=== PATIENT | female | born 1960 | race Native Hawaiian/Other Pacific Islander ===

== ENCOUNTER 2020-05-01 09:00 | Observation (INO) | payer OTHER ==
[~2020-05-01] VITALS: Ht 149.9 cm; Wt 83.9 kg
--- NOTE | ~2020-05-01 | O ---
[facility] [place] [address] OPERATIVE REPORT Name: LISBETH MCCLELLAND Room #: 442-P [facility] Ching Daly#: [id number] Admission: 06/19/20 Attend Phys: Bebeto Schultz MD Discharge: Date of : 58 Report #: [id number] THIS REPORT FOR: cc: JUAN RINALDI Physician not on staff Bebeto Schultz MD ~ DATE OF SERVICE: 06/19/2020 PREOPERATIVE DIAGNOSIS: Right knee osteoarthritis. POSTOPERATIVE DIAGNOSIS: Right knee osteoarthritis. PROCEDURE: Right total knee arthroplasty using Navio robotic support assistant. SURGEON: Bebeto Schultz MD. BENDING ROLL HAND: Karime Ledesma PA-C. INDICATIONS FOR BENDING ROLL HAND: Throughout the case, extensive retraction and manipulation of the knee was required. This was afforded to me by my support assistant. ANESTHESIA: LMA with an adductor canal block. IMPLANTS: Holland and Nephew size 3 Journey II BCS Oxinium femur, a size 2 tibia, size 11 polyethylene and size 29 patella. TOURNIQUET TIME: 50 minutes. ESTIMATED BLOOD LOSS: 25 mL. COMPLICATIONS: None. SPECIMENS: None. CONDITION UPON LEAVING THE OPERATING ROOM: Stable. INDICATIONS FOR PROCEDURE: The patient is a 60-year-old female with right knee osteoarthritis. She had failed conservative measures for this and after discussion with her, she elected for right total knee arthroplasty. DESCRIPTION OF PROCEDURE: Risks, benefits, alternatives, complications were discussed in detail with the patient including but not limited to risk of anesthesia, risk of damage to nerves, arteries, blood vessels, risk for infection, bleeding, risk for continued knee pain, need for reoperation. Informed consent was obtained from the patient. Right knee was appropriately marked in the preoperative holding area. IV Ancef was given for preoperative [address] [address] OPERATIVE REPORT Name: LISBETH MCCLELLAND Room #: 442-P [facility] Ching Daly#: [id number] Admission: 06/19/20 Attend Phys: Bebeto Schultz MD Discharge: Date of : 58 Report #: [id number] antibiotics. She was brought to the operating room and placed in supine position on operating room table. LMA anesthesia was induced without complication. Tourniquet was placed on the right thigh. Right lower extremity was prepped and draped in normal sterile fashion. Timeout was performed properly identifying the patient and procedure as well as the instrumentation and implants. All in the operating room were in agreement. Right lower extremity was exsanguinated, tourniquet was inflated. Tourniquet time was 50 minutes. Standard midline approach to the knee was made with 10 blade through the skin. Dissection was taken down sharply to the fascia and deep flaps were developed medially and laterally. Fresh 10 blade was used to make a medial parapatellar arthrotomy and the knee was inspected. There was severe tricompartmental osteoarthritis. ACL and PCL were removed sharply. Reference pins were placed in the femur and the tibia. The knee was then digitally mapped using the [employer] robotic system. Intraoperative plan was made and we sized to size 3 femur with a size 2 tibia and a size 29 and a size 11 spacer. After acceptance of the intraoperative plan, the distal femoral cut was made with a Navio bur. Distal femoral cutting block was pinned in place and chamfer cuts were made. Attention was turned to the tibia. Remainder of the meniscus was removed with Bovie cautery. Tibial resection guide was pinned in place using Navio for placement and tibial resection was made. After this, flexion and extension gaps were then checked and found to have good balance in flexion and extension both medially and laterally. Tibia was sized, found to be a size 2. A size 2 tibial trial was placed, pinned and punched. Size 3 femoral trial was placed and the box cut was made. This was then trialed with a size 10 and then a size 11 polyethylene and size 11 demonstrated 1-2 millimeter of laxity medially and laterally throughout range of motion of the knee. A 9 mm was resected from the posterior surface of the patella and a size 29 patellar trial button was placed. Knee was taken through range of motion, found to be stable, found to have good patellar tracking. Trial components were removed. Bony ends were thoroughly irrigated with normal saline. A final size 2 tibia, size 3 Journey II BCS Oxinium femur and a size 29 patella were cemented in place using standard cementation techniques. While the cement cured, a periarticular injection consisting of morphine, ropivacaine, epinephrine, Toradol was placed around the knee joint capsule. After the cement cured, the tourniquet was deflated. Hemostasis was obtained with Bovie cautery. Final size 11 polyethylene was placed. A gram of vancomycin was placed deep in the joint. Fascia was closed with 0 Vicryl, skin was closed with 2-0 Vicryl, skin staple and a PAULA dressing was applied. The patient tolerated this procedure well and went to recovery room under care of anesthesia postoperatively. By: 1245 1308 Bebeto Schultz MD /radha
[2020-06-12] MEDS ORDERED: PROTONIX40 M4 PO (14:57)
[2020-06-12] MEDS ORDERED: GLUCOPHAGE500 MG PO (14:57)
[2020-06-12] MEDS ORDERED: LISINOPRIL5 MG PO (14:57)
[2020-06-12] MEDS ORDERED: LIPITOR20 MG PO (14:57)
[2020-06-12] MEDS ORDERED: VITAMIN B-125000 MC2 PO (14:58)
[2020-06-12] MEDS ORDERED: LEVO-T50 MCG PO (14:58)
[2020-06-12] MEDS ORDERED: ASA81BEC PO (14:59)
[2020-06-12] MEDS ORDERED: CITRACAL-VIT D1 EACH PO (14:59)
[2020-06-12] MEDS ORDERED: MAGNESIUM250 M1 PO (15:00)
[2020-06-12] MEDS ORDERED: OMEGA-3 + VITA1 EACH PO (15:01)
[2020-06-14 12:52] LABS: URINE BILIRUBIN NEGATIVE (Negative); URINE BLOOD NEGATIVE (Negative); URINE CLARITY CLEAR; URINE COLOR YELLOW; URINE GLUCOSE-RANDOM* NEGATIVE (Negative); URINE KETONES NEGATIVE (Negative); URINE LEUKOCYTES-REFLEX NEGATIVE (Negative); URINE NITRITE-REFLEX NEGATIVE (Negative); URINE PROTEIN (DIPSTICK) NEGATIVE (Negative); URINE SPECIFIC GRAVITY 1.025 (1.005-1.035); URINE UROBILINOGEN 0.2 E.U./dl (0.2-1.0)
[2020-06-14 12:58] LABS: HEMATOCRIT 39.4 % (37.0-47.0); MCH 28.2 pg (26.0-34.0); MCV 85.6 fL (80.0-100.0); RBC 4.6 mil/uL (4.20-5.00); RDW 14.4 % (10.5-14.5); WBC 6.9 thou/uL (4.0-11.0)
[2020-06-14 13:14] LABS: CALCIUM 9.3 mg/dL (8.5-10.1); CREATININE 0.6 mg/dL (0.6-1.0); POTASSIUM 4.1 mmol/L (3.5-5.1)
[2020-06-14 13:21] LABS: PROTIME 10.2 Seconds (9.3-11.4)
--- NOTE | 2020-06-14 13:47 | EKG ---
[facility] [place] [address] ELECTROCARDIOGRAM REPORT Name: LISBETH MCCLELLAND Room #: [facility] IN M.R.#: [id number] Admission: Attend Phys: Bebeto Schultz MD Discharge: Date of : 58 Report #: [id number] THIS REPORT FOR: cc: JUAN RINALDI Physician not on staff Yoan Espinosa MD [facility] ~ THIS REPORT FOR: //name// [facility] Test Date: 2020-06-14 Test Time: 12:47:37 Pat Name: LISBETH MCCLELLAND Department: Room: Gender: F Forestry Farm Laborer: MADELINE : 1960 Requested By: Bebeto Schultz Order Number: [id number] MD: Yoan Espinosa Measurements Intervals [place] Rate: 55 P: 23 PA: 169 QRS: 19 QRSD: 89 T: 31 QT: 428 QTc: 410 Interpretive Statements Sinus rhythm No previous ECG available for comparison Electronically Signed On 06-14-2020 13:47:08 CALENDER SUPERVISOR by Yoan Espinosa [email or web address] <ELECTRONICALLY SIGNED> By: Yoan Espinosa MD, FACC 06/14/20 1347 1247 1247 Yoan Espinosa MD, FACC /EPI
[2020-06-15 01:07] LABS: GLYCOHEMOGLOBIN (HGB A1C) 6.1 % (4.8-5.6)
[2020-06-19 10:17] VITALS: BP 122/62
[2020-06-19 14:30] VITALS: BP 138/80
[2020-06-19 15:00] VITALS: BP 132/72
[2020-06-19 15:30] VITALS: BP 117/70
[2020-06-19 20:43] VITALS: BP 112/69
[2020-06-19 22:41] VITALS: BP 112/69
[2020-06-20 01:05] VITALS: BP 103/48
[2020-06-20 05:36] LABS: HEMATOCRIT 30.6 % (37.0-47.0); HEMOGLOBIN 10.1 gm/dL (12.0-15.0); MCH 28.1 pg (26.0-34.0); MCHC 32.9 g/dL (28.0-37.0); MCV 85.4 fL (80.0-100.0); RBC 3.58 mil/uL (4.20-5.00); RDW 14.5 % (10.5-14.5); WBC 10.8 thou/uL (4.0-11.0)
[2020-06-20 08:21] VITALS: BP 107/67
[2020-06-20 10:27] VITALS: BP 107/67
== END 2020-06-20 13:16 | disposition home or self-care (01) ==
LOC: PRE 09:00 → 4S 06-19 08:53 → TBA 06-19 08:53 → 4S 06-19 08:53 → PRE 06-19 12:04 → 4S 06-19 14:18
PROVIDERS: ADMIT Orthopaedic Surgery; ATTEND Orthopaedic Surgery
DX: M17.11 Unilateral primary osteoarthritis, right knee (principal); I10 Essential (primary) hypertension; E78.5 Hyperlipidemia, unspecified; E66.9 Obesity, unspecified; J45.909 Unspecified asthma, uncomplicated; E03.9 Hypothyroidism, unspecified; Z98.890 Other specified postprocedural states; Z85.3 Personal history of malignant neoplasm of breast
CPT/HCPCS: 50010; 50101; 50415; 50954; 51130; 51225; 51320; 51412; 53000; 53078; 53365; 56527; 56528; 57095; 57103; 57110; 57127; 57180; 62110; 62900; 64039; 64043; 65060; 70005

== ENCOUNTER → 2020-06-14 | Outpatient (CLI) | payer OTHER ==
[~2020-06-14] MED LIST: ASA81BEC PO; CITRACAL-VIT D1 EACH PO; GLUCOPHAGE500 MG PO; LEVO-T50 MCG PO; LIPITOR20 MG PO; LISINOPRIL5 MG PO; MAGNESIUM250 M1 PO; OMEGA-3 + VITA1 EACH PO; PROTONIX40 M4 PO; VITAMIN B-125000 MC2 PO
== END ==
LOC: LAB 08:35
PROVIDERS: ATTEND Orthopaedic Surgery
DX: Z01.812 Encounter for preprocedural laboratory examination (principal); Z20.828 Contact with and (suspected) exposure to other viral communicable diseases

== ENCOUNTER → 2021-07-26 | Outpatient (CLI) | payer OTHER ==
[~2021-07-26] MED LIST changes: +METFORMIN HCL500 M3 PO; +[UNRECOGNIZED DRUG - CODE] PO
[2021-07-26 12:51] LABS: HEMATOCRIT 38.9 % (37.0-47.0); HEMOGLOBIN 12.6 gm/dL (12.0-15.0); MCH 27.4 pg (26.0-34.0); MCHC 32.4 g/dL (28.0-37.0); MCV 84.7 fL (80.0-100.0); RBC 4.59 mil/uL (4.20-5.00); RDW 14.7 % (10.5-14.5)
[2021-07-26 12:52] LABS: URINE BLOOD NEGATIVE (Negative); URINE CLARITY CLEAR; URINE COLOR YELLOW; URINE GLUCOSE-RANDOM* NEGATIVE (Negative); URINE KETONES NEGATIVE (Negative); URINE LEUKOCYTES-REFLEX NEGATIVE (Negative); URINE NITRITE-REFLEX NEGATIVE (Negative); URINE PROTEIN (DIPSTICK) NEGATIVE (Negative); URINE SPECIFIC GRAVITY >= 1.030 (1.005-1.035); URINE UROBILINOGEN 0.2 E.U./dl (0.2-1.0)
[2021-07-26 12:54] LABS: ICTOTEST (BILI CONFIRMATORY) Negative (Negative); URINE BILIRUBIN NEGATIVE (Negative)
[2021-07-26 13:01] LABS: CALCIUM 8.7 mg/dL (8.5-10.1); CREATININE 0.6 mg/dL (0.6-1.0); POTASSIUM 3.8 mmol/L (3.5-5.1)
[2021-07-26 13:07] LABS: INR 1.04; PROTIME 11.3 Seconds (10.5-12.1)
--- NOTE | 2021-07-26 13:28 | EKG ---
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 : 1960 Requested By: Bebeto Schultz Order Number: [id number] MD: Yoan Espinosa Measurements Intervals [place] Rate: 67 P: 47 AR: 171 QRS: 19 QRSD: 87 T: 31 QT: 387 QTc: 409 Interpretive Statements Sinus rhythm Abnormal R-wave progression, early transition Compared to ECG 06/14/2020 12:47:37 No significant changes Electronically Signed On 07-26-2021 13:27:48 FLANGE MACHINE OPERATOR by Yoan Espinosa [email or web address] <ELECTRONICALLY SIGNED> By: Yoan Espinosa MD, [facility] 07/26/21 1327 1235 1235 Yoan Espinosa MD, FACC /EPI
[2021-07-27 02:06] LABS: GLYCOHEMOGLOBIN (HGB A1C) 6.4 % (4.8-5.6)
== END ==
LOC: PAC 11:45
PROVIDERS: ATTEND Orthopaedic Surgery
DX: Z01.812 Encounter for preprocedural laboratory examination (principal); Z01.810 Encounter for preprocedural cardiovascular examination; Z96.651 Presence of right artificial knee joint

== ENCOUNTER 2021-08-29 09:34 | Observation (INO) | payer OTHER ==
[~2021-08-29] VITALS: Ht 149.9 cm; Wt 81.6 kg
[2021-08-29] VITALS (8 sets, daily range): BP systolic 115–134; BP diastolic 54–65
--- NOTE | ~2021-08-29 | O ---
[facility] [place] [address] OPERATIVE REPORT Name: LISBETH MCCLELLAND Room #: [facility].#: [id number] Admission: 08/29/21 Attend Phys: Bebeto Schultz MD Discharge: Date of : 58 Report #: [id number] THIS REPORT FOR: cc: FAM - Family physician unknown FAM - Family physician unknown Bebeto Schultz MD ~ DATE OF SERVICE: 08/29/2021 PREOPERATIVE DIAGNOSIS: Aseptic loosening, right total knee arthroplasty. POSTOPERATIVE DIAGNOSIS: Aseptic loosening, right total knee arthroplasty. PROCEDURE PERFORMED: Right total knee arthroplasty, all components. SURGEON: Bebeto Schultz MD PRINTING PLATE CLERK: Karime Ledesma PA-C INDICATION FOR PRINTING PLATE CLERK: Throughout the case, extensive retraction, manipulation of the knee was required. This is afforded to me by my assistant store manager. ANESTHESIA: LMA with adductor canal block. IMPLANTS: Holland and Nephew size 3 Legion revision femur with a 4 mm offset production administrator and a 13 x 160 stem and two 5 mm distal wedges for the medial and lateral femoral component, a size 2 Legion revision tibial baseplate with a 10 mm complete wedge, a 4 mm offset production administrator and a 12 x 160 stem, size 15 constrained polyethylene and size 29 patella. TOURNIQUET TIME: 107 minutes. ESTIMATED BLOOD LOSS: 50 mL. COMPLICATIONS: None. SPECIMENS: Intraoperative frozen section was taken and sent, which showed no acute neutrophils per high power field. Intraoperative cultures were also taken and sent. CONDITION UPON LEAVING OPERATING ROOM: Stable. INDICATIONS FOR PROCEDURE: The patient is a 61-year-old female who is over a year out from a right total knee arthroplasty. She has had continued knee pain in her knee and after workup for infection, which was negative, workup for aseptic loosening revealed increased bony uptake on bone scan. It was determined that she likely had aseptic loosening of her right total knee [address] [address] OPERATIVE REPORT Name: LISBETH MCCLELLAND Room #: [facility].#: [id number] Admission: 08/29/21 Attend Phys: Bebeto Schultz MD Discharge: Date of : 58 Report #: [id number] arthroplasty. After discussion with her, she elected for revision total knee arthroplasty. DESCRIPTION OF PROCEDURE: Risks, benefits, alternatives, complications were discussed in detail with the patient including but not limited to risk of anesthesia, risk of damage to nerves, arteries, blood vessels, risk for infection, bleeding, risk for continued knee pain and need for reoperation. Informed consent was obtained from the patient. Right knee was appropriately marked in the preoperative holding area. IV Ancef was given for preoperative antibiotics. Adductor canal block was placed by Anesthesia. She was brought to the operating room and placed in the supine position on the operating table. LMA anesthesia was induced without complication. Tourniquet was placed on the right thigh. Right lower extremity was prepped and draped in normal sterile fashion. Timeout was performed properly identifying the patient and procedure as well as the instrumentation and implants. All in the operating room in agreement. Right lower extremity was exsanguinated, tourniquet was inflated. Tourniquet time was 107 minutes. The previous incision was used and a 10 blade was used to make an incision through the scar. Dissection was taken down sharply to the fascia. Deep flaps were developed medially and laterally. Fresh 10 blade was used to make a medial parapatellar arthrotomy and the knee was inspected. Cultures of the fluid were taken. Several synovial samples were taken and sent to pathology for intraoperative frozen. Pathology revealed no neutrophils per high power field, but just chronic inflammatory reactive components. Polyethylene was removed. Medial and lateral gutters were reestablished. The femoral component was then removed with a rigid curved osteotome. This actually came out rather easily and it was felt that this was obviously loose. Attention was turned to the tibia. This was removed with combination of rigid and flexible osteotomes. This required more work to get out as it was felt that perhaps the tibial component was not loose; however, we decided to go ahead and remove it for all component revision. After this, the tibial and femoral canals were reamed sequentially. Tibia was reamed up to a 12. A cleanup cut was made and was sized, found to be a size 2. This works best with a 4 mm offset production administrator in the 4:30 o'clock position. Tibial trial was placed and punched. Attention was then turned to the femur. This was reamed up to a 13. The 13 reamer had the best fit. Distal femoral cleanup cut was made. The femur was sized, found to be a size 3. A size 3 femoral component fit best with a 4 mm offset production administrator in the 6 o'clock position. Anterior, posterior and chamfer cuts were made. Femoral trial was placed. Knee was then trialed with a size 13 polyethylene up to a size 18. It was determined that she was loose in extension in comparison to flexion. 5 mm distal wedges were placed on the femoral component and the knee was then trialed again. We trialed the knee up to a size 21, at which point there was still hyperextension and some laxity. The 25 trial was too tight and it was felt that we needed to build up the tibia in order to go back down to a thinner polyethylene. A 10 mm tibial wedge was then placed and this was trialed with a size 13 up to a size [address] [address] OPERATIVE REPORT Name: LISBETH MCCLELLAND Room #: REG [facility].Vincent.#: [id number] Admission: 08/29/21 Attend Phys: Bebeto Schultz MD Discharge: Date of : 58 Report #: [id number] Size 15 polyethylene demonstrated full extension with good range of motion in flexion with good stability, medially and laterally. Previous patellar component was then removed with oscillating saw and a new size 29 patellar trial button was placed. Knee was taken through range of motion, found to be stable, found to have good patellar tracking. Trial components were removed. Bone ends were thoroughly irrigated with normal saline. The final components were built on the backtable and cemented in place using standard cementation techniques. While the cement cured, a periarticular injection consisting of morphine, ropivacaine, epinephrine, Toradol was placed around the knee joint capsule. After the cement cured, the tourniquet was deflated. Hemostasis was obtained with Bovie cautery. A final size 15 constrained polyethylene was placed. A gram of vancomycin was placed deep in the joint. Fascia was closed with 0 Vicryl. Skin was closed with 2-0 Vicryl, skin staple and a PAULA dressing was applied. The patient tolerated this procedure well and went to recovery room under care of Anesthesia postoperatively. By: 1431 1539 Bebeto Schultz MD /radha
[~2021-08-29 09:34] MED LIST changes: +AUGMENTIN 875-1 EACH PO
--- NOTE | 2021-08-30 05:25 | NUR ---
ASSUMED OT CARE THIS PM. PT IS ALERT AND ORIENTED X4. PT HAS POLAR CARE TO THE RIGHT KNEE. PAIN WAS MANAGED BY SCHEDULED MEDS. PT IS SBA TO THE BR WITH WALKER WHICH WAS TOLERABLE. PT WAS VERY ANXIOUS AND RESTLESS THROUGHOUT THE NIGHT. PT IS ON RA. NO VISIBLE SIGN OF DISTRESS NOTED. FALL PRECAUTIONS IN PLACE. WILL CONTINUE TO MONITOR
[2021-08-30 12:43] VITALS: BP 118/60
--- NOTE | 2021-08-30 12:44 | NUR ---
Chart reviewed and case discussed with the care team. Pt is dcing home today and was cleared by therapy. PT confirmed pt has a FWW at home and is going to go to outpt therapy. NO cm interventions indicated.
--- NOTE | 2021-08-30 15:39 | NUR ---
ASSUMED CARE OF PT AT 0700. PT HAD NUMEROUS COMPLAINTS WITH YESTERDAYS CARE AND OVERNOC CARE - WAS NOT ALLOWED TO AMBULATE, DID NOT RECIEVE MEALS, STAFF DID NOT ALCOHOL SWAB PERIPHERAL IV. PT EXPLAINED SHE FELT VERY ANXIOUS ABOUT THIS PROCEDURE, STATING IT FELT DIFFERENT THAN THE FIRST. PT GIVEN MUCH EXPLANATION/REASURRANCE POSSIBLE. DISCHARGE ORDER ENTERED, PONCE NOTIFIED. PT DISCHARGED AROUND 1500. VSS. AOX4. AFEBRILE.
--- NOTE | 2021-08-31 17:06 | PATH ---
[facility] [place] [address] PATHOLOGY RPT PROCEDURE Name: LISBETH MCCLELLAND Room #: 447-P [facility] Ching MChasityRChasity#: [id number] Admission: 08/29/21 Date of : 58 Discharge: 08/30/21 Report #: [id number] Path Case #: [id number] [facility] Accession Number: [id number] . 01 Material submitted: . knee - RIGHT KNEE SYNOVIUM FLUID AND TISSUE- FS. Modifiers: right . 01 Clinical history: . TOTAL KNEE REVISION HISTORY OF RIGHT KNEE REPLACEMENT . 02 Frozen section diagnosis: . FROZEN SECTION DIAGNOSIS (Dr. Ynes Lau) . 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 . The findings are discussed with Dr. Bebeto Schultz intraoperatively and a progress note is placed in the patient's chart. . . FROZEN SECTION GROSS DESCRIPTION Received fresh from the operating room labeled "right knee synovium" are multiple fragments of tenosynovium, which in aggregate measures 3 x 2.5 x 1 cm. Two sections of synovium are frozen and submitted in cassettes A1 and A2. The remainder of the tissue is submitted in cassettes A3 and A4. . (CAROLK:roberto; 08/30/2021) . Frozen section performed at [facility], [facility] , [place] [address]. TG/CLARIBEL . 03 Diagnosis: Soft tissue "right knee synovium", excision: - Tenosynovium with mild chronic synovitis, with only rare neutrophils. (TG:roberto; 08/30/2021) MBR 08/31/2021 1025 Local . 03 Electronically signed: . Ynes Lau MD, Pathologist NPI- [id number] . 01 Gross description: . A. PLEASE SEE GROSS DESCRIPTION UNDER FROZEN SECTION DIAGNOSIS. [address] [address] PATHOLOGY RPT PROCEDURE Name: LISBETH MCCLELLAND Room #: 447-P [facility] Ching Slaughter.#: [id number] Admission: 08/29/21 Date of : 58 Discharge: 08/30/21 Report #: [id number] Path Case #: [id number] . A1: Frozen section tissue remnant from cassette designated A1, entirely submitted A2: Frozen section tissue remnant from cassette designated A2, entirely submitted A3-A4: Additional sections from remaining tissue, represented ([place]; 08/29/2021) DKA/DKA 08/30/2021 1812 Local . 03 Pathologist provided ICD-10: M65.861 . 03 CPT . 428415, 355145, 699996 Specimen Comment: A courtesy copy of this report has been sent to [phone] Specimen Comment: Report sent to [facility]formed at: [facility] [address] [place] [id number] MD Reza Davies MD Phone: [phone] Performed at: [address] [id number] MD Casandra Whitaker MD Phone: [phone] Performed at: 03 [facility] [address] [id number] MD Juan Gaspar MD Phone: [phone]
== END 2021-08-30 15:38 | disposition home or self-care (01) ==
LOC: OR → 4S 17:03
PROVIDERS: ADMIT Orthopaedic Surgery; ATTEND Orthopaedic Surgery
DX: T84.032A Mechanical loosening of internal right knee prosthetic joint, initial encounter (principal); M17.11 Unilateral primary osteoarthritis, right knee; Z20.822 Contact with and (suspected) exposure to COVID-19; Z79.899 Other long term (current) drug therapy; X58.XXXA Exposure to other specified factors, initial encounter; Y92.89 Other specified places as the place of occurrence of the external cause; Y93.89 Activity, other specified; Y99.8 Other external cause status
CPT/HCPCS: 50010; 50101; 50415; 50954; 51130; 51225; 51320; 51412; 52001; 52056; 53000; 53078; 56528; 57095; 57103; 57116; 57179; 57982; 58412; 58418; 59203; 59204; 59205; 59206; 59207; 59208; 62110; 62900; 70005